=== PATIENT | male | born 1955 | race American Indian/Alaskan Native ===

== ENCOUNTER 2018-05-14 15:14 | Outpatient (CLI) | payer OTHER ==
--- NOTE | 2018-05-14 19:20 | XRay Report ---
FINAL REPORT PROCEDURE: Lumbar spine. TECHNIQUE: Four views. HISTORY: Low back pain. COMPARISON: No prior studies are available for comparison. FINDINGS: The lumbar vertebrae have normal height. There are no fractures. There is moderately severe disc space narrowing at L4-5 and L5-S1. There is grade 1 spondylolisthesis at L5-S1. The sacrum and sacroiliac joints appear normal. IMPRESSION: Degenerative disc disease at L4-5 and L5-S1. Grade 1 spondylolisthesis at L5-S1.
== END 2018-05-14 15:15 | disposition home or self-care (01) ==
LOC: XRAY 15:14
PROVIDERS: ATTEND Orthopaedic Surgery
DX: M51.37 Other intervertebral disc degeneration, lumbosacral region (principal); M43.17 Spondylolisthesis, lumbosacral region; I21.4 Non-ST elevation (NSTEMI) myocardial infarction; E03.9 Hypothyroidism, unspecified; I11.0 Hypertensive heart disease with heart failure; I50.9 Heart failure, unspecified
CPT/HCPCS: 72110

== ENCOUNTER 2018-07-07 16:45 | Outpatient (CLI) | payer OTHER ==
--- NOTE | 2018-07-07 20:00 | Magnetic Resonance Report ---
FINAL REPORT PROCEDURE: MR LUMBAR SPINE WO CON TECHNIQUE: Magnetic resonance imaging of the lumbar spine was performed using standard pulse sequences without contrast material. CPT 17831 HISTORY: LOW BACK PAIN COMPARISON: 05/14/2018 FINDINGS: The conus terminates at the level of L1 and is unremarkable in appearance. L1-2: There is minimal broad-based posterior disc herniation, with no significant spinal stenosis or neural foraminal. Bilateral facet arthritis. L2-3: Minimal broad-based posterior disc bulge, without significant spinal stenosis or neural foraminal narrowing. Bilateral facet arthritis. L3-4: Broad-based posterior disc herniation and bilateral facet arthritis. Thecal sac is not significantly narrowed. There is moderate bilateral neural foraminal narrowing. L4-5: There is broad-based posterior disc herniation and bilateral facet arthritis. There is high signal at the posterior aspect of the disc space, suggesting posterior annular fissure. There is moderate to severe bilateral neural foraminal narrowing. L5-S1: There is 5 millimeters anterolisthesis of L5 on S1, with possible bilateral L5 pars interarticularis defects. There is uncovering of the posterior disc at L5-S1. There is severe bilateral neural foraminal narrowing. No significant spinal stenosis. Other: Bilateral large renal cysts, which are not fully imaged. IMPRESSION: Significant degenerative disc changes, from L3-4 through L5-S1.
== END 2018-07-07 16:46 | disposition home or self-care (01) ==
LOC: MRI 16:45
PROVIDERS: ATTEND Orthopaedic Surgery
DX: M47.897 Other spondylosis, lumbosacral region (principal); M51.26 Other intervertebral disc displacement, lumbar region; I11.0 Hypertensive heart disease with heart failure; I50.9 Heart failure, unspecified; E03.9 Hypothyroidism, unspecified; M10.9 Gout, unspecified
CPT/HCPCS: 72148

== ENCOUNTER 2018-07-29 18:12 | Emergency (ER) | payer SELFPAY ==
[2018-07-29 18:39] VITALS: BP 172/99
== END 2018-07-29 18:54 | disposition left against medical advice (07) ==
LOC: ED 18:12
DX: M54.5 Low back pain (principal); Z53.21 Procedure and treatment not carried out due to patient leaving prior to being seen by health care provider

== ENCOUNTER 2018-08-11 19:55 | Emergency (ER) | payer OTHER ==
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
[2018-08-11 20:49] VITALS: BP 164/98
== END 2018-08-11 20:35 | disposition home or self-care (01) ==
LOC: ED 19:55
DX: G20 Parkinson's disease (principal); I10 Essential (primary) hypertension; E89.0 Postprocedural hypothyroidism; Z86.711 Personal history of pulmonary embolism; Z86.718 Personal history of other venous thrombosis and embolism; Z79.82 Long term (current) use of aspirin; V89.2XXA Person injured in unspecified motor-vehicle accident, traffic, initial encounter; Y93.89 Activity, other specified; Y92.488 Other paved roadways as the place of occurrence of the external cause; Y99.8 Other external cause status
CPT/HCPCS: 99283

== ENCOUNTER 2018-11-11 11:59 | Inpatient (IN) | payer BC ==
--- NOTE | 2018-11-11 12:52 | Emergency Department Report ---
HPI - General Chief Complaint: Neuro Symptoms/Deficit Time Seen by Provider: 11/11/18 12:33 - HPI HPI: Room 2 The patient is a 63-year-old male presenting with chief complaint of weakness. Family states the patient has been weak and sluggish for the past 1-2 weeks. States the patient has been very forgetful. The patient states she's felt off balance for approximately 3-6 months. There has been no loss of consciousness, paresthesia or dysarthria or dysphagia. States the patient has had urinary frequency for the past 2-3 weeks. Today the patient went to a urologist office for the first time in consultation where he was found to be lethargic and subsequently was sent to the ED for eval Location: [See above] Duration: [See above] Quality: Weakness Severity: Moderate Modifying factors: [see above] Context: [see above] Mode of transportation: [not driving] ED Past Medical Hx - Past Medical History Previous Medical History?: Yes Hx Hypertension: Yes Hx Deep Vein Thrombosis: Yes (left leg) Hx Pulmonary Embolism: Yes (2016- TOOK SELF OFF XARELTO 1 YR AGO) Additional medical history: bilateral PE. hypothyroid. parkinson's 2018 - Surgical History Past Surgical History?: Yes Additional Surgical History: THYROIDECTOMY. eyes - Family History Family history: no significant - Social History Smoking Status: Never Smoker Substance Use Type: None (denies illicit drug use), Alcohol (occasional) - Medications Home Medications: Home Medications Medication Instructions Recorded Confirmed Last Taken Type Levothyroxine [Synthroid] 100 mcg PO QAM 08/07/16 07/31/18 Unknown History Aspirin [Aspir-Low] 81 mg PO DAILY 07/22/18 07/22/18 Unknown History Oxybutynin [Ditropan] 5 mg PO DAILY 07/22/18 07/22/18 Unknown History hydrALAZINE [Apresoline TAB] 100 mg PO TID 07/22/18 07/22/18 Unknown History HYDROcodone/APAP 5-325 [[place] 1 each PO Q4HR PRN #20 tablet 07/31/18 Unknown Rx 5-325 mg TAB] ED Review of Systems ROS: Stated complaint: NEURO DEFICITS Other details as noted in HPI Constitutional: malaise Eyes: denies: eye pain ENT: denies: throat pain Respiratory: no symptoms reported Cardiovascular: denies: chest pain Endocrine: no symptoms reported Gastrointestinal: denies: abdominal pain Genitourinary: denies: dysuria Musculoskeletal: back pain Neurological: denies: headache, paresthesias Physical Exam - Physical Exam Vital Signs: Vital Signs 11/11/18 12:04 Temperature 97.9 F Pulse Rate 69 Respiratory 18 Rate Blood Pressure 139/93 O2 Sat by Pulse 99 Oximetry Physical Exam: GENERAL: The patient is well-developed well-nourished male lying on stretcher not appearing to be in acute distress. [] HEENT: Normocephalic. Atraumatic. Extraocular motions are intact. Patient has moist mucous membranes. NECK: Supple. Trachea midline CHEST/LUNGS: Clear to auscultation. There is no respiratory distress noted. HEART/CARDIOVASCULAR: Regular. There is no tachycardia. There is no gallop rub or murmur. ABDOMEN: Abdomen is soft, nontender. Patient has normal bowel sounds. There is no abdominal distention. SKIN: There is no rash. There is no edema. There is no diaphoresis. NEURO: The patient is awake, alert, and oriented. The patient is cooperative. The patient has no focal neurologic deficits. The patient has normal speech. Cranial nerves II through XII grossly intact, no drift. Moves all extremities well. Normal sensation throughout MUSCULOSKELETAL: There is no evidence of acute injury. NIHSS= 0 LOC a. Alert= 0 Not alert but arousable to minor stimuli=1 Not alert requires repeated or strong stimuli to move= 2 Responds only reflex motor or unresponsive=3 b. asks month and age answers both correctly= 0 answers one correctly= 1 answers neither correctly= 2 Best Gaze normal= 0 abnormal in one or both but forced deviation or total paresis absent= 1 forced deviation or total gaze paresis= 2 Visual no visual loss= 0 partial hemianopia= 1 complete hemianopia= 2 bilateral hemianopia= 3 Facial Palsy normal= 0 minor paralysis= 1 partial paralysis= 2 complete paralysis= 3 Motor Arm no drift= 0 drift before 10 secs but doesnt hit bed= 1 some effort against gravity= 2 no effort against gravity= 3 no movement= 4 Motor leg no drift= 0 drift before 5 secs but doesnt hit bed= 1 drifts to bed before 5 secs= 2 no effort against gravity= 3 no movement= 4 Limb ataxia absent=0 present in one limb= 1 present in two limbs= 2 Sensory normal= 0 mild sensory loss= 1 severe (unaware of being touched)= 2 Best language mild/some loss of fluency= 1 severe= 2 mute= 3 Dysarthria normal= 0 slurs some words= 1 severe/unintelligible= 2 Extinction and Inattention no abnormality= 0 visual, tactile, auditory or personal inattention= 1 profound (doesnt recognize own hand or orients to only one side= 2 ED Course Vital Signs 11/11/18 12:04 Temperature 97.9 F Pulse Rate 69 Respiratory 18 Rate Blood Pressure 139/93 O2 Sat by Pulse 99 Oximetry ED Medical Decision Making - Lab Data Result diagrams: 11/11/18 13:13 11/11/18 13:13 Laboratory Tests 11/11/18 11/11/18 11/11/18 13:01 13:01 13:01 WBC RBC Hgb Hct MCV MCH MCHC RDW Plt Count Lymph % (Auto) Spencer % (Auto) Eos % (Auto) Baso % (Auto) Lymph # Spencer # Eos # Baso # Seg Neutrophils % Seg Neutrophils # PT 14.0 INR 1.04 APTT 26.6 VBG pH 7.358 Sodium Potassium Chloride Carbon Dioxide Anion Gap BUN Creatinine Estimated GFR BUN/Creatinine Ratio Glucose Calcium Total Bilirubin AST ALT Alkaline Phosphatase Ammonia 43.0 Total Creatine Kinase CK-MB (CK-2) CK-MB (CK-2) Rel Index Troponin T NT-Pro-B Natriuret Pep Total Protein Albumin Albumin/Globulin Ratio TSH Free T4 11/11/18 11/11/18 11/11/18 13:13 13:13 13:13 WBC 5.7 RBC 4.05 Hgb 13.4 Hct 40.7 MCV 100 H MCH 33 H MCHC 33 RDW 13.8 Plt Count 131 L Lymph % (Auto) 21.9 Spencer % (Auto) 11.2 H Eos % (Auto) 0.3 Baso % (Auto) 0.4 Lymph # 1.3 Spencer # 0.6 Eos # 0.0 Baso # 0.0 Seg Neutrophils % 66.2 Seg Neutrophils # 3.8 PT INR APTT VBG pH Sodium 141 Potassium 4.3 Chloride 105.6 Carbon Dioxide 23 Anion Gap 17 BUN 18 Creatinine 0.9 Estimated GFR > 60 BUN/Creatinine Ratio 20 Glucose 74 L Calcium 9.2 Total Bilirubin 0.40 AST 31 ALT 18 Alkaline Phosphatase 55 Ammonia Total Creatine Kinase 194 H CK-MB (CK-2) 3.4 CK-MB (CK-2) Rel Index 1.7 Troponin T < 0.010 NT-Pro-B Natriuret Pep 153.9 Total Protein 6.8 Albumin 3.9 Albumin/Globulin Ratio 1.3 TSH 0.581 Free T4 1.23 - EKG Data -: EKG Interpreted by Sc EKG shows normal: sinus rhythm Rate: bradycardia (56 bpm) - EKG Data When compared to previous EKG there are: previous EKG unavailable Interpretation: other (no ischemic changes seen) - Radiology Data Radiology results: report reviewed (CT head), image reviewed (CT head) [facility] [address] [place] [address] Cat Scan Report Signed Patient: FERNANDO GRAY MR#: [id number] : 1955 Acct:[id number] Age/Sex: 63 / M ADM Date: 11/11/18 Loc: ED Attending Dr: Ordering Physician: RUBY LEI MD Date of Service: 11/11/18 Procedure(s): CT head/brain wo con Accession Number(s): [id number] cc: RUBY LEI MD CT HEAD WITHOUT CONTRAST: HISTORY: Weakness. TECHNIQUE: Sequential CT images without contrast. FINDINGS: Compared to 08/20/16. Mild diffuse volume loss is again noted. The subdural spaces near the vertex of the skull are slightly prominent bilaterally. This is unchanged. It is unclear if this is secondary to volume loss or chronic subdural collections. The brain parenchyma demonstrates normal density. There is no evidence for hemorrhage, mass or large area of acute ischemia. No chronic infarct is identified. Ventricular size is stable and wit hin normal limits. The calvarium, sinuses and mastoid air cells are within normal limits. IMPRESSION: No acute intracranial process. No change since 08/20/16. Mild diffuse volume loss. Question small bilateral chronic subdural collections as described above. Transcribed By: TTR Dictated By: JEANNETTE WHITLOCK JR, MD Electronically Authenticated By: JEANNETTE WHITLOCK JR, MD Signed Date/Time: 11/11/18 1320 DD/ 1318 TD/TT: 11/11/18 1320 - Differential Diagnosis symptomatic anemia, diabetes, Parkinson's disease, hypothyroidism Critical care attestation.: If time is entered above; I have spent that time in minutes in the direct care of this critically ill patient, excluding procedure time. ED Disposition Clinical Impression: Weakness Disposition: OP ADMIT IP TO THIS HOSP Is pt being admited?: Yes Does the pt Need Aspirin: No Condition: Fair Time of Disposition: 14:41 (Hospitalist notified (Dr Buenrostro))
--- NOTE | 2018-11-11 13:23 | Cat Scan Report ---
CT HEAD WITHOUT CONTRAST: HISTORY: Weakness. TECHNIQUE: Sequential CT images without contrast. FINDINGS: Compared to 08/20/16. Mild diffuse volume loss is again noted. The subdural spaces near the vertex of the skull are slightly prominent bilaterally. This is unchanged. It is unclear if this is secondary to volume loss or chronic subdural collections. The brain parenchyma demonstrates normal density. There is no evidence for hemorrhage, mass or large area of acute ischemia. No chronic infarct is identified. Ventricular size is stable and within normal limits. The calvarium, sinuses and mastoid air cells are within normal limits. IMPRESSION: No acute intracranial process. No change since 08/20/16. Mild diffuse volume loss. Question small bilateral chronic subdural collections as described above.
[2018-11-11 13:43] LABS: INR 1.04 (0.87-1.13)
[2018-11-11 13:44] LABS: Partial Thromboplastin Time 26.6 Sec. (24.2-36.6)
[2018-11-11 13:47] LABS: Basophils % (Auto) 0.4 % (0.0-1.8); Eosinophils % (Auto) 0.3 % (0.0-4.3); Hematocrit 40.7 % (35.5-45.6); Hemoglobin 13.4 gm/dl (11.8-15.2); Lymphocytes # (Auto) 1.3 K/mm3 (1.2-5.4); Lymphocytes % (Auto) 21.9 % (13.4-35.0); Mean Corpuscular HGB Conc 33 % (32-34); Mean Corpuscular Volume 100 fl (84-94); Monocytes # (Auto) 0.6 K/mm3 (0.0-0.8); Monocytes % (Auto) 11.2 % (0.0-7.3); Platelet Count 131 K/mm3 (140-440); Red Blood Count 4.05 M/mm3 (3.65-5.03); Red Cell Distribution Width 13.8 % (13.2-15.2)
[2018-11-11 14:10] LABS: Creatine Kinase MB 3.4 ng/mL (0.0-4.0)
[2018-11-11 14:12] LABS: Alanine Aminotransferase 18 units/L (7-56); Albumin 3.9 g/dL (3.9-5); BUN/Creatinine Ratio 20; Blood Urea Nitrogen 18 mg/dL (9-20); Calcium 9.2 mg/dL (8.4-10.2); Hemolysis Index 58
[2018-11-11 14:16] LABS: Free T4 (Free Thyroxine) 1.23 ng/dL (0.76-1.46)
[2018-11-11] MEDS ORDERED: ZOFRAN IV PRN (14:39)
[2018-11-11] MEDS ORDERED: TYLENOL PO PRN (14:39)
[2018-11-11] MEDS ORDERED: PROVENTIL IH PRN (14:39)
[2018-11-11] MEDS ORDERED: SODIUM CHLORIDE FLUSH SYRINGE 10 ML IV PRN (14:39)
--- NOTE | 2018-11-11 14:42 | History and Physical Report ---
History of Present Illness Chief complaint: He's not acting right History of present illness: 63 YO Male with HTN, DVT/PE not currently on therapeutic Anticoagualtion, Hypothyroid, Parkinsons disease presents to ED for evaluation. Pt is confused and unable to provide detailed history. Pt history is provided by his who is at bedside during exam and interview. As per , the patient has experienced increased weakness and confusion over the past 2 weeks with worsening symptoms over the same time frame. Pt is unable to independently conduct activities of daily living. No reports of fever, chills, CP, NVD, Trau ma, skin rash, productive cough, unintentional weight loss, night sweats, or recent ill contacts. Pt seen and evaluated in ED and found to have Encephalopathy and Debility. Pt admitted to medical floor. - Past History Past Medical History: DVT, hypertension, hypothyroidism, pulmonary embolism, other (Parkinsons) Past Surgical History: thyroidectomy, Other (Eye surgery) Social history: , lives with family. denies: smoking, alcohol abuse, prescription drug abuse Family history: hypertension Medications and Allergies Allergies Allergy/AdvReac Type Severity Reaction Status Date / Time No Known Allergies Allergy Verified 11/11/18 12:04 Home Medications Medication Instructions Recorded Confirmed Last Taken Type Levothyroxine [Synthroid] 100 mcg PO QAM 08/07/16 07/31/18 Unknown History Aspirin [Aspir-Low] 81 mg PO DAILY 07/22/18 07/22/18 Unknown History Oxybutynin [Ditropan] 5 mg PO DAILY 07/22/18 07/22/18 Unknown History hydrALAZINE [Apresoline TAB] 100 mg PO TID 07/22/18 07/22/18 Unknown History HYDROcodone/APAP 5-325 [[place] 1 each PO Q4HR PRN #20 tablet 07/31/18 Unknown Rx 5-325 mg TAB] Active Meds: Active Medications Acetaminophen (Tylenol) 650 mg PO Q4H PRN PRN Reason: Pain MILD(1-3)/Fever >100.5/[place] Albuterol (Proventil) 2.5 mg IH Q4HRT PRN PRN Reason: Shortness Of Breath Ondansetron HCl (Zofran) 4 mg IV Q8H PRN PRN Reason: Nausea And Vomiting Sodium Chloride (Sodium Chloride Flush Syringe 10 Ml) 10 ml IV BID ELA Sodium Chloride (Sodium Chloride Flush Syringe 10 Ml) 10 ml IV PRN PRN PRN Reason: LINE FLUSH Review of Systems ROS unobtainable: due to mental status Exam - Constitutional Vitals: Temp Pulse Resp BP Pulse Ox 97.9 F 61 19 156/93 100 11/11/18 12:04 11/11/18 13:33 11/11/18 13:33 11/11/18 13:33 11/11/18 13:33 General appearance: Present: mild distress - EENT Eyes: Present: PERRL ENT: hearing intact, clear oral mucosa - Neck Neck: Present: supple, normal ROM - Respiratory Respiratory effort: normal Respiratory: bilateral: CTA - Cardiovascular Heart Sounds: Present: S1 & S2. Absent: rub, click - Extremities Extremities: pulses symmetrical, No edema Peripheral Pulses: within normal limits - Abdominal General gastrointestinal: Present: soft, non-tender, non-distended, normal bowel sounds Male genitourinary: Present: normal - Integumentary Integumentary: Present: clear, warm, dry - Musculoskeletal Musculoskeletal: generalized weakness - Psychiatric Psychiatric: no appropriate mood/affect, no intact judgment & insight, no memory intact - Neurologic Neurologic: CNII-XII intact, moves all extremities, no gait normal Results - Labs CBC & Chem 7: 11/11/18 13:13 11/11/18 13:13 Labs: Abnormal lab results 11/11/18 11/11/18 Range/Units 13:13 13:13 MCV 100 H (84-94) fl MCH 33 H (28-32) pg Plt Count 131 L (140-440) K/mm3 [place] % (Auto) 11.2 H (0.0-7.3) % Glucose 74 L (75-100) mg/dL Total Creatine Kinase 194 H (55-170) units/L Assessment and Plan - Patient Problems (1) Encephalopathy Current Visit: Yes Status: Acute Plan to address problem: CT Head, neuro check, thyroid panel, B12 level, EEG, aspiration precautions, fall precautions, (2) Hypothyroid Current Visit: Yes Status: Acute Qualifiers: Hypothyroidism type: acquired Qualified Code(s): E03.9 - Hypothyroidism, unspecified Plan to address problem: continue current therapy, thyroid panel (3) Debility Current Visit: Yes Status: Acute Plan to address problem: PT consulted, supportive care (4) DVT prophylaxis Current Visit: Yes Status: Acute Plan to address problem: SCD to BLE while in bed.
[2018-11-11] MEDS: SODIUM CHLORIDE FLUSH SYRINGE 10 ML IV SCH (23:47)
[2018-11-12] MEDS: SODIUM CHLORIDE FLUSH SYRINGE 10 ML IV SCH ×2 (11:31→22:20)
--- NOTE | 2018-11-12 14:33 | Progress Note ---
Assessment and Plan Assessment and plan: 63-year-old man who presents with confusion. His relates that he has increased weakness and confusion for 2 weeks patient was having hallucinations on sinemet, and his neurologist tapered him from 3 tabs a day to 1/4 a tab daily and he has been progressively weak, worsening tremors, unable to do his ADLs Past medical history hypertension, DVT/PE, hypothyroidism, Parkinson's disease Acute toxic metabolic encephalopathy Follow-up labs, workup in progress obtain MR brain to r/o cva likely due reduction of sinemet dose, neuro consult, will increase sinemet dose again -neurology consult -TSH wnl, cont synthroid HTN hold bP meds, monitor BP curve Acute debility Physical therapy consult DVT prophylaxis; chemical History Interval history: Review of systems Constitutional: No fevers, no malaise, no joint pains CVS: No chest pain, no orthopnea, no dyspnea on exertion, no pedal edema GI: No abdominal pain, no diarrhea, no vomiting, no constipation Respiratory: No shortness of breath, no wheezing, no coughingReview of systems Hospitalist Physical - Physical exam Narrative exam: General.: Appears well, no distress, nontoxic HEENT: Moist mucous membranes, extraocular muscles intact, no lymphadenopathy Neck: supple Cardiac: S1-S2 heard Lungs: clear to auscultation bilaterally Abdomen: soft , nontender, nondistended, bowel sounds positive Extremities: no edema clubbing or cyanosis, resting tremor Skin: no rash or lesions Neurologic: no gross focal deficits Psych: calm, and cooperative - Constitutional Vitals: Temp Pulse Resp BP Pulse Ox 97.9 F 73 18 140/88 100 11/12/18 12:50 11/12/18 12:50 11/12/18 12:50 11/12/18 12:50 11/12/18 12:50 General appearance: Present: mild distress Results - Labs CBC & Chem 7: 11/11/18 13:13 11/11/18 13:13 Labs: Laboratory Last Values WBC 5.7 K/mm3 (4.5-11.0) 11/11/18 13:13 RBC 4.05 M/mm3 (3.65-5.03) 11/11/18 13:13 Hgb 13.4 gm/dl (11.8-15.2) 11/11/18 13:13 Hct 40.7 % (35.5-45.6) 11/11/18 13:13 MCV 100 fl (84-94) H 11/11/18 13:13 MCH 33 pg (28-32) H 11/11/18 13:13 MCHC 33 % (32-34) 11/11/18 13:13 RDW 13.8 % (13.2-15.2) 11/11/18 13:13 Plt Count 131 K/mm3 (140-440) L 11/11/18 13:13 Lymph % (Auto) 21.9 % (13.4-35.0) 11/11/18 13:13 [place] % (Auto) 11.2 % (0.0-7.3) H 11/11/18 13:13 Eos % (Auto) 0.3 % (0.0-4.3) 11/11/18 13:13 Baso % (Auto) 0.4 % (0.0-1.8) 11/11/18 13:13 Lymph # 1.3 K/mm3 (1.2-5.4) 11/11/18 13:13 [place] # 0.6 K/mm3 (0.0-0.8) 11/11/18 13:13 Eos # 0.0 K/mm3 (0.0-0.4) 11/11/18 13:13 Baso # 0.0 K/mm3 (0.0-0.1) 11/11/18 13:13 Seg Neutrophils % 66.2 % (40.0-70.0) 11/11/18 13:13 Seg Neutrophils # 3.8 K/mm3 (1.8-7.7) 11/11/18 13:13 PT 14.0 Sec. (12.2-14.9) 11/11/18 13:01 INR 1.04 (0.87-1.13) 11/11/18 13:01 APTT 26.6 Sec. (24.2-36.6) 11/11/18 13:01 D-Dimer 237.81 ng/mlDDU (0-234) H 11/11/18 13:13 VBG pH 7.358 (7.320-7.420) 11/11/18 13:01 Sodium 141 mmol/L (137-145) 11/11/18 13:13 Potassium 4.3 mmol/L (3.6-5.0) 11/11/18 13:13 Chloride 105.6 mmol/L (98-107) 11/11/18 13:13 Carbon Dioxide 23 mmol/L (22-30) 11/11/18 13:13 Anion Gap 17 mmol/L 11/11/18 13:13 BUN 18 mg/dL (9-20) 11/11/18 13:13 Creatinine 0.9 mg/dL (0.8-1.5) 11/11/18 13:13 Estimated GFR > 60 ml/min 11/11/18 13:13 BUN/Creatinine Ratio 20 % 11/11/18 13:13 Glucose 74 mg/dL (75-100) L 11/11/18 13:13 Calcium 9.2 mg/dL (8.4-10.2) 11/11/18 13:13 Total Bilirubin 0.40 mg/dL (0.1-1.2) 11/11/18 13:13 AST 31 units/L (5-40) 11/11/18 13:13 ALT 18 units/L (7-56) 11/11/18 13:13 Alkaline Phosphatase 55 units/L (35-129) 11/11/18 13:13 Ammonia 43.0 umol/L (25-60) 11/11/18 13:01 Total Creatine Kinase 194 units/L (55-170) H 11/11/18 13:13 CK-MB (CK-2) 3.4 ng/mL (0.0-4.0) 11/11/18 13:13 CK-MB (CK-2) Rel Index 1.7 (0-4) 11/11/18 13:13 Troponin T < 0.010 ng/mL (0.00-0.029) 11/11/18 13:13 NT-Pro-B Natriuret Pep 153.9 pg/mL (0-900) 11/11/18 13:13 Total Protein 6.8 g/dL (6.3-8.2) 11/11/18 13:13 Albumin 3.9 g/dL (3.9-5) 11/11/18 13:13 Albumin/Globulin Ratio 1.3 % 11/11/18 13:13 Vitamin B12 1080 pg/mL (211-911) H 11/11/18 13:13 TSH 0.581 mlU/mL (0.270-4.200) 11/11/18 13:13 Free T4 1.23 ng/dL (0.76-1.46) 11/11/18 13:13 HIV 1&2 Antibody Rapid Non react (Non React) 11/11/18 13:13 HIV P24 Antigen Non react (Non React) 11/11/18 13:13
[2018-11-12] MEDS ORDERED: ATIVAN IV NR (14:45)
--- NOTE | 2018-11-12 16:56 | XRay Report ---
FINAL REPORT PROCEDURE: Chest. TECHNIQUE: AP and lateral views. HISTORY: Cough. COMPARISON: No prior studies are available for comparison. FINDINGS: The heart size is normal. There is calcification in the thoracic aorta. The lungs are clear and well expanded. There are no pleural effusions. The soft tissues and regional skeleton are unremarkable. IMPRESSION: No evidence of acute disease.
--- NOTE | 2018-11-12 18:23 | Magnetic Resonance Report ---
FINAL REPORT PROCEDURE: MRI brain without contrast. TECHNIQUE: Magnetic resonance imaging of the brain was performed without contrast material. HISTORY: Stroke. COMPARISON: No prior studies are available for comparison. FINDINGS: The ventricles are normal in size. There is mild cerebral atrophy. There are a few scattered focal ar eas of bright signal intensity on the T2 and FLAIR weighted images. These are predominantly located i n the subcortical and deep white matter of both cerebral hemispheres. These are not unusual for age a nd probably represent chronic microvascular ischemic change. There are no mass lesions. There is no i ntracranial hemorrhage. There are no signs of restricted diffusion. The mastoid air cells and paranas al sinuses are grossly clear. IMPRESSION: Normal study of the brain for age.
--- NOTE | 2018-11-12 18:30 | Magnetic Resonance Report ---
FINAL REPORT PROCEDURE: Magnetic resonance angiogram of the brain without contrast. TECHNIQUE: Axial 3-D [id number] MR angiography of the [place] of [place] and brain was performed. The source images were reconstructed in various views using maximum intensity projection. HISTORY: Stroke. COMPARISON: No prior studies are available for comparison. FINDINGS: Both distal internal carotid arteries are widely patent. Both anterior cerebral arteries are patent. Both anterior cerebral arteries fill through the right A1 segment. The left A1 segment is congenitall y absent. Both middle cerebral arteries are patent. The left posterior communicating artery is patent . The right posterior communicating artery is not visible. Both distal vertebral arteries are patent. Both posterior inferior cerebellar arteries are patent. The basilar artery is patent. Both anterior inferior cerebellar arteries are patent. Both superior cerebellar and both posterior cerebral arterie s are patent. There are no signs of aneurysm disease. There is no evidence of a vasculitis. 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 Both anterior cer ebral arteries fill from the right side. No significant vascular abnormality identified.
[2018-11-12] MEDS: LATANOPROST 0.005% OU SCH (22:41)
--- NOTE | 2018-11-13 01:33 | Consultation ---
NEUROLOGICAL CONSULTATION REASON FOR CONSULTATION: Evaluation of Parkinson's disease. CHIEF COMPLAINT: Weakness. HISTORY OF PRESENT ILLNESS: History is obtained partly from the patient, two daughters, but I spoke with the on the phone. The patient is a 63-year-old [place] male, who was diagnosed with Parkinson's disease about 2 years ago. He was then treated and evaluated. He has been followed by a neurologist here. He was taking only a small dose of Sinemet apparently has been 1/2 tablet of 20/100 three times a day and with this, he has been doing well. His main symptoms are such as slowness of movement and especially with walking. However, for the last 2 weeks, he has been becoming very weak and sluggish and he is off balanced. The felt that this started after the physician increased the Sinemet to 3 times a day. She observed that he is somewhat better now that he had not received this and the patient has received his Sinemet yet. He was also described to be somewhat lethargic and it was decided that he was sent to the Emergency Room for evaluation. The patient also had complained of low back pain and he was diagnosed with arthritis. He apparently had received what the daughter described as epidural block. I reviewed the history from the admitting physician and he mentioned that the patient was confused and could not give any history. The patient is getting to be slowly progressively unable to do his activities of daily living also. He was felt to have some encephalopathy by the Emergency Room physician. PAST MEDICAL HISTORY: The patient was diagnosed with Parkinson's disease, has deep vein thrombosis, hypertension, hypothyroidism, pulmonary embolism. PAST SURGICAL HISTORY: Thyroidectomy, eye surgery. SOCIAL HISTORY: He is . He lives with his family. He does not smoke, drink alcoholic beverages. No drugs. FAMILY HISTORY: Positive for Parkinson's. ALLERGIES: None known. MEDICATIONS: The list of medications was reviewed by me with the nurse and it appeared that there is a record of Sinemet at 25/100 t.i.d. He was not sure when this was started. His home medication from the records reveals levothyroxine 100 mcg. p.o. at morning, aspirin 81 mg daily, Ditropan 5 mg daily, hydralazine 100 mg t.i.d., [place] 1 every 4 hours p.r.n. PHYSICAL EXAMINATION: GENERAL: Revealed the patient is a well-developed, well-nourished male. He was in no acute distress. VITAL SIGNS: Blood pressure was 120/77, temperature 98.8, pulse rate 70, respiration 18 and regular, oximetry 97%. HEAD, EYES, EARS, NOSE, MOUTH AND THROAT: Examination is unremarkable. No intracranial or intraorbital bruits. NECK: Supple. No carotid bruit. HEART: Regular rate and rhythm. LUNGS: Sounds clear. ABDOMEN: Soft. EXTREMITIES: Unremarkable. NEUROLOGIC: Examination revealed the patient is awake, alert. His speech is somewhat slow and thick. He has a slight mass-like face. Cranial nerve examination is unremarkable. Motor examination, he is generally weak, but about 4-1/2/5. He has cogwheeling bilaterally in the upper extremities, difficult to obtain in the lower extremities. Coordination is difficult to obtain. Reflexes are hypoactive. No pathological reflexes. The patient was not ambulated because of his weakness, but the daughter reports that when he walks he usually shuffles and better with. IMAGING STUDIES: The patient has had a CT scan of the brain, which showed mild atrophy only. MRI of the brain is pending. ASSESSMENT AND NEUROLOGIC EVALUATION: This patient has a 2-year history of Parkinson's disease. He was just started on medication and therefore, it is difficult to assess his response. From the history, the described that he seems to be coming along fine with the medication, but to a small dose and when the dose was increased, she felt that this is what the cause of his hallucination, which is possible and also the weakness. I could not correlate this very well. There is also an overall report by the that he seems to be not moving as well as when he was the first time. This could be the natural course of the disease. Therefore, we are trying to assess how he is doing with the progression of the disease as well as the effect from the Sinemet. RECOMMENDATION: We will review the MRI. As far as the medication is concerned, the family is quite hesitant to put back on the newer medication of 25/100 three times a day. Therefore, I discussed with him that we might try some smaller dosage at 25/100 b.i.d. and closely observe. I discussed with them the difficulty of adjusting the medication sometimes. This patient also has a chronic low back pain, which is being treated by his primary care doctor. This patient should be also checked metabolically, check also for any possible infection. We will leave this to the attending hospitalist. Sixty minutes involving the history and physical examination, more than 50% in the evaluation of care and counseling. JOB# [id number] DAPHNIE/BAKARI
[2018-11-13 03:01] LABS: Bacteria,Urine 1+ /HPF (Negative); Bilirubin,Urine NEG (Negative); Blood,Urine NEG (Negative); Color,Urine Yellow (Yellow); Mucus,Urine FEW /HPF; Protein,Urine <15 mg/dL mg/dL (Negative); Urobilinogen,Urine < 2.0 mg/dL (<2.0)
[2018-11-13] MEDS: SYNTHROID PO SCH (06:12)
[2018-11-13] MEDS: NORVASC PO SCH (09:15)
[2018-11-13] MEDS: FLOMAX PO SCH (09:15)
[2018-11-13] MEDS: SODIUM CHLORIDE FLUSH SYRINGE 10 ML IV SCH ×2 (09:18→22:00)
[2018-11-13] MEDS ORDERED: SINEMET PO SCH (10:00)
[2018-11-13] MEDS ORDERED: NON-FORMULARY (Carbidopa/Levodopa [Carbidopa-Levo 25-100 Mg Odt] 1 EACH) PO SCH (10:00)
--- NOTE | 2018-11-13 11:42 | Progress Note ---
Assessment and Plan Assessment and plan: 63-year-old man who presents with confusion. His relates that he has increased weakness and confusion for 2 weeks patient was having hallucinations on sinemet, and his neurologist tapered him from 3 tabs a day to 1/4 a tab daily and he has been progressively weak, worsening tremors, unable to do his ADLs Past medical history hypertension, DVT/PE, hypothyroidism, Parkinson's disease Acute toxic metabolic encephalopathy workup with includes, TSH, b12, hiv and mr brain are all negative likely due reduction of sinemet dose, neuro consult, appreciated, increase sinemet to 2 tabs daily Hypothyroidism tsh wnl, cont synthroid HTN hold BP meds, monitor BP curve Acute debility Physical therapy consult 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 empiric abx, obtain urine cx DVT prophylaxis; chemical Dispo; home with family and home health upon dc Hospitalist Physical - Constitutional Vitals: Temp Pulse Resp BP Pulse Ox 98.9 F 55 L 16 139/75 97 11/13/18 05:14 11/13/18 05:14 11/13/18 05:14 11/13/18 09:15 11/13/18 05:14 General appearance: Present: mild distress Results - Labs CBC & Chem 7: 11/11/18 13:13 11/11/18 13:13 Labs: Laboratory Last Values WBC 5.7 K/mm3 (4.5-11.0) 11/11/18 13:13 RBC 4.05 M/mm3 (3.65-5.03) 11/11/18 13:13 Hgb 13.4 gm/dl (11.8-15.2) 11/11/18 13:13 Hct 40.7 % (35.5-45.6) 11/11/18 13:13 MCV 100 fl (84-94) H 11/11/18 13:13 MCH 33 pg (28-32) H 11/11/18 13:13 MCHC 33 % (32-34) 11/11/18 13:13 RDW 13.8 % (13.2-15.2) 11/11/18 13:13 Plt Count 131 K/mm3 (140-440) L 11/11/18 13:13 Lymph % (Auto) 21.9 % (13.4-35.0) 11/11/18 13:13 [place] % (Auto) 11.2 % (0.0-7.3) H 11/11/18 13:13 Eos % (Auto) 0.3 % (0.0-4.3) 11/11/18 13:13 Baso % (Auto) 0.4 % (0.0-1.8) 11/11/18 13:13 Lymph # 1.3 K/mm3 (1.2-5.4) 11/11/18 13:13 [place] # 0.6 K/mm3 (0.0-0.8) 11/11/18 13:13 Eos # 0.0 K/mm3 (0.0-0.4) 11/11/18 13:13 Baso # 0.0 K/mm3 (0.0-0.1) 11/11/18 13:13 Seg Neutrophils % 66.2 % (40.0-70.0) 11/11/18 13:13 Seg Neutrophils # 3.8 K/mm3 (1.8-7.7) 11/11/18 13:13 PT 14.0 Sec. (12.2-14.9) 11/11/18 13:01 INR 1.04 (0.87-1.13) 11/11/18 13:01 APTT 26.6 Sec. (24.2-36.6) 11/11/18 13:01 D-Dimer 237.81 ng/mlDDU (0-234) H 11/11/18 13:13 VBG pH 7.358 (7.320-7.420) 11/11/18 13:01 Sodium 141 mmol/L (137-145) 11/11/18 13:13 Potassium 4.3 mmol/L (3.6-5.0) 11/11/18 13:13 Chloride 105.6 mmol/L (98-107) 11/11/18 13:13 Carbon Dioxide 23 mmol/L (22-30) 11/11/18 13:13 Anion Gap 17 mmol/L 11/11/18 13:13 BUN 18 mg/dL (9-20) 11/11/18 13:13 Creatinine 0.9 mg/dL (0.8-1.5) 11/11/18 13:13 Estimated GFR > 60 ml/min 11/11/18 13:13 BUN/Creatinine Ratio 20 % 11/11/18 13:13 Glucose 74 mg/dL (75-100) L 11/11/18 13:13 Calcium 9.2 mg/dL (8.4-10.2) 11/11/18 13:13 Total Bilirubin 0.40 mg/dL (0.1-1.2) 11/11/18 13:13 AST 31 units/L (5-40) 11/11/18 13:13 ALT 18 units/L (7-56) 11/11/18 13:13 Alkaline Phosphatase 55 units/L (35-129) 11/11/18 13:13 Ammonia 43.0 umol/L (25-60) 11/11/18 13:01 Total Creatine Kinase 194 units/L (55-170) H 11/11/18 13:13 CK-MB (CK-2) 3.4 ng/mL (0.0-4.0) 11/11/18 13:13 CK-MB (CK-2) Rel Index 1.7 (0-4) 11/11/18 13:13 Troponin T < 0.010 ng/mL (0.00-0.029) 11/11/18 13:13 NT-Pro-B Natriuret Pep 153.9 pg/mL (0-900) 11/11/18 13:13 Total Protein 6.8 g/dL (6.3-8.2) 11/11/18 13:13 Albumin 3.9 g/dL (3.9-5) 11/11/18 13:13 Albumin/Globulin Ratio 1.3 % 11/11/18 13:13 Vitamin B12 1080 pg/mL (211-911) H 11/11/18 13:13 TSH 0.581 mlU/mL (0.270-4.200) 11/11/18 13:13 Free T4 1.23 ng/dL (0.76-1.46) 11/11/18 13:13 Urine Color Yellow (Yellow) 11/12/18 02:37 Urine Turbidity Clear (Clear) 11/12/18 02:37 Urine pH 7.0 (5.0-7.0) 11/12/18 02:37 Ur Specific [place] 1.014 (1.003-1.030) 11/12/18 02:37 Urine Protein <15 mg/dl mg/dL (Negative) 11/12/18 02:37 Urine Glucose (UA) Neg mg/dL (Negative) 11/12/18 02:37 Urine Ketones Neg mg/dL (Negative) 11/12/18 02:37 Urine Blood Neg (Negative) 11/12/18 02:37 Urine Nitrite Neg (Negative) 11/12/18 02:37 Urine Bilirubin Neg (Negative) 11/12/18 02:37 Urine Urobilinogen < 2.0 mg/dL (<2.0) 11/12/18 02:37 Ur Leukocyte Esterase Sm (Negative) 11/12/18 02:37 Urine WBC (Auto) 17.0 /HPF (0.0-6.0) H 11/12/18 02:37 Urine RBC (Auto) 2.0 /HPF (0.0-6.0) 11/12/18 02:37 U Epithel Cells (Auto) < 1.0 /HPF (0-13.0) 11/12/18 02:37 Urine Bacteria (Auto) 1+ /HPF (Negative) 11/12/18 02:37 Urine Mucus Few /HPF 11/12/18 02:37 HIV 1&2 Antibody Rapid Non react (Non React) 11/11/18 13:13 HIV P24 Antigen Non react (Non React) 11/11/18 13:13
--- NOTE | 2018-11-13 13:27 | XRay Report ---
Lumbar spine: Back pain. AP and lateral projections demonstrate diffuse spondylosis of the lumbar levels. There is marked narrowing of the interspaces between L4-5 and L5-S1 with eburnation of the articular surfaces. There is a grade 1 anterior L5 subluxation relative to S1. The vertebral alignment is otherwise unremarkable. Vertebral height is generally maintained at all levels. There is a minimal angulation of the upper 2 lumbar bodies to the right. Compared to prior examination of May 14, 2018 there are no changes noted. Of note is calcification of the distal abdominal aorta with a diameter of 2.1 cm. Impression: Multilevel stable degenerative bone and disc changes with grade one L5 subluxation.
[2018-11-13] MEDS: ROCEPHIN/NS 1 GM/50 ML 1 GM/50 ML BAG IV SCH (14:59)
--- NOTE | 2018-11-13 17:56 | Consultation ---
History of Present Illness - Reason for Consult Consult date: 11/13/18 - History of Present Illness 63-year-old man who presents with confusion. His relates that he has increased weakness and confusion for 2 weeks patient was having hallucinations on sinemet, and his neurologist tapered him from 3 tabs a day to 1/4 a tab daily and he has been progressively weak, worsening tremors, unable to do his ADLs Seen by Dr. Ren in office spine imaging: + DJD lumbar area MRI brain normal Past medical history hypertension, DVT/PE, hypothyroidism, Parkinson's disease female & male at bedside abd soft A/a urinary frequency/ nocturia (x 5-6) trial of flomax needs outpt urodynamics Past History Past Medical History: DVT, hypertension, hypothyroidism, pulmonary embolism, other (Parkinsons) Past Surgical History: thyroidectomy, Other (Eye surgery) Social history: , lives with family. denies: smoking, alcohol abuse, prescription drug abuse Family history: hypertension Medications and Allergies Allergies Allergy/AdvReac Type Severity Reaction Status Date / Time No Known Allergies Allergy Unverified 11/13/18 10:56 Home Medications Medication Instructions Recorded Confirmed Last Taken Type Levothyroxine [Synthroid] 100 mcg PO QAM 08/07/16 11/11/18 Unknown History Carbidopa/Levodopa [Carbidopa-Levo 1 each PO DAILY 11/11/18 11/11/18 Unknown History 25-100 mg Odt] Latanoprost [Xalatan] 2.5 ml OP DAILY 11/11/18 11/11/18 Unknown History hydrALAZINE 100 mg PO BID 11/12/18 11/12/18 11/11/18 08:00 History Active Meds: Active Medications Acetaminophen (Tylenol) 650 mg PO Q4H PRN PRN Reason: Pain MILD(1-3)/Fever >100.5/KINSEY Albuterol (Proventil) 2.5 mg IH Q4HRT PRN PRN Reason: Shortness Of Breath Amlodipine Besylate (Norvasc) 10 mg PO QDAY [facility], [facility]1983 Last Admin: 11/13/18 09:15 Dose: 10 mg Documented by: Carbidopa/Levodopa (Sinemet) 1 each PO BID [facility], [facility]1983 Enoxaparin Sodium (Lovenox) 40 mg SUB-Q QDAY@2200 [facility], [facility]1983 Ceftriaxone Sodium (Rocephin/Ns 1 Gm/50 Ml) 1 gm in 50 mls @ 100 mls/hr IV Q24HR [facility], [facility]1983; Protocol Last Admin: 11/13/18 14:59 Dose: 100 mls/hr Documented by: Latanoprost (Latanoprost 0.005%) 1 drops OU QPM [facility]1983 Last Admin: 11/12/18 22:41 Dose: Not Given Documented by: Levothyroxine Sodium (Synthroid) 100 mcg PO DAILY@0600 [facility] Last Admin: 11/13/18 06:12 Dose: 100 mcg Documented by: Lorazepam (Ativan) 2 mg IV [employer]URNS [employer]OR NR Stop: 11/13/18 23:59 Methylprednisolone (Medrol) 4 mg PO BID [facility]1983 Ondansetron HCl (Zofran) 4 mg IV Q8H PRN PRN Reason: Nausea And Vomiting Sodium Chloride (Sodium Chloride Flush Syringe 10 Ml) 10 ml IV BID [facility] Last Admin: 11/13/18 09:18 Dose: 10 ml Documented by: Sodium Chloride (Sodium Chloride Flush Syringe 10 Ml) 10 ml IV PRN PRN PRN Reason: LINE FLUSH Tamsulosin HCl (Flomax) 0.4 mg PO QDAY [facility] Last Admin: 11/13/18 09:15 Dose: 0.4 mg Documented by: Exam - Constitutional Vitals: Temp Pulse Resp BP Pulse Ox 97.8 F 77 16 102/62 98 11/13/18 17:02 11/13/18 17:02 11/13/18 17:02 11/13/18 17:02 11/13/18 17:02 Results - Labs CBC & Chem 7: 11/11/18 13:13 11/11/18 13:13 Labs: Abnormal lab results 11/12/18 Range/Units 02:37 Urine WBC (Auto) 17.0 H (0.0-6.0) /HPF
[2018-11-13] MEDS: LATANOPROST 0.005% OU SCH (18:00)
[2018-11-13] MEDS ORDERED: LOVENOX SUB-Q SCH (22:00)
[2018-11-13] MEDS: MEDROL PO SCH (22:00)
[2018-11-13] MEDS: SINEMET PO SCH (22:47)
--- NOTE | 2018-11-14 00:38 | Physician Progress Note ---
NEUROLOGY PROGRESS NOTE REASON FOR CONSULTATION: Parkinson's disease. SUBJECTIVE: The patient is doing much better today. He is awake, alert, talking. He said that he is feeling stronger. He is communicative, talking well. There has been no other event. OBJECTIVE: The patient has mask-like facies, but not bad. The speech is better than yesterday. He still has cogwheeling rigidity. Gait shuffling. MRI of the brain was negative. MRA also negative. ASSESSMENT: It is very possible that the symptoms of the patient could be related to the increase in the dosage of the Sinemet. However, I observed that the dose was only very, very small. I just put him on 25/100 b.i.d. I am wondering whether the small dose made the difference. In anyway, there is improvement. PLAN: We will continue the same medication. Once he is stable, he will need to be closely followed by his neurologist as an outpatient. I had a long discussion with the patient's sister yesterday with regards to the prognosis, the need for constant treatment that there is no cure. The patient will develop altered mental status changes as observed in patients with Parkinson's. The patient to have physical therapy. Again, same dose of medication and neuro observation. Continuing care by the [facility] neurologist. JOB# [id number] DAPHNIE/BAKARI
[2018-11-14 06:07] VITALS: BP 142/83
[2018-11-14] MEDS: SYNTHROID PO SCH (06:14)
[2018-11-14] MEDS ORDERED: FLOMAX PO SCH (10:00)
[2018-11-14] MEDS: ROCEPHIN/NS 1 GM/50 ML 1 GM/50 ML BAG IV SCH (10:06)
[2018-11-14] MEDS: NORVASC PO SCH (10:07)
[2018-11-14] MEDS: SINEMET PO SCH (10:07)
[2018-11-14] MEDS: FLOMAX PO SCH (10:08)
[2018-11-14] MEDS: SODIUM CHLORIDE FLUSH SYRINGE 10 ML IV SCH (10:09)
--- NOTE | 2018-11-14 11:27 | Discharge Summary ---
Providers - Providers Date of Admission: 11/11/18 14:39 Attending physician: CONNOR ZHANG MD 11/12/18 14:29 Occupational Therapy Evaluate and Treat [CONS] Routine Comment: Reason For Exam: Neuro deficits Physical Therapy Evaluation and Treat [CONS] Routine Comment: Reason For Exam: Neuro deficits Physical Therapy Evaluation and Treat [CONS] Routine Comment: Reason For Exam: ataxia 11/12/18 14:33 Consult to Physician [CONS] Routine Comment: Consulting Provider: REGULO TORRES Physician Instructions: Reason For Exam: ams 11/13/18 17:12 Consult to Physician [CONS] Routine Comment: Consulting Provider: BERTA BRANDON Physician Instructions: Reason For Exam: trouble urinating 11/13/18 17:23 Consult to Physician [CONS] Routine Comment: Consulting Provider: BERTA BRANDON Physician Instructions: Reason For Exam: difficulty urinating Primary care physician: [employer] Hospitalization Condition: Fair Hospital course: 63-year-old man who presents with confusion. His relates that he has increased weakness and confusion for 2 weeks patient was having hallucinations on sinemet, and his neurologist tapered him from 3 tabs a day to 1/4 a tab daily and he has been progressively weak, worsening tremors, unable to do his ADLs Past medical history hypertension, DVT/PE, hypothyroidism, Parkinson's disease -The patient's likely suffered worsening of his Parkinson's disease symptoms due to weaning off Sinemet. He was seen by neurology, he received MRI of his brain which was negative for any acute findings, TSH was wnl. He was put back on Sinemet at a reduced dose -UTI was ruled out by negative urine culture. He received x-ray of his spine which is consistent with DJD, and advised to take pain meds as needed and advised to continue physical therapy, home physical therapy was organized for him -BP meds were optimized, he was seen by urology for prostatism, he was treated with Flomax and is to follow-up with them in clinic Diagnosis Acute toxic metabolic encephalopathy Hypothyroidism HTN Acute debility Prostatism DJD of l spine Disposition: [id number] HOME UNDER HOME HL Time spent for discharge: 33 mins Core Measure Documentation - Palliative Care Palliative Care/ Comfort Measures: Not Applicable - Core Measures Any of the following diagnoses?: none Exam - Constitutional Vitals: Temp Pulse Resp BP Pulse Ox 98.6 F 61 20 142/83 99 11/14/18 05:44 11/14/18 05:44 11/14/18 05:44 11/14/18 05:44 11/14/18 05:44 General appearance: Present: no acute distress, well-nourished - EENT Eyes: Present: PERRL ENT: hearing intact, clear oral mucosa - Neck Neck: Present: supple, normal ROM - Respiratory Respiratory effort: normal Respiratory: bilateral: CTA - Cardiovascular Heart Sounds: Present: S1 & S2. Absent: rub, click - Extremities Extremities: pulses symmetrical, No edema Peripheral Pulses: within normal limits - Abdominal General gastrointestinal: Present: soft, non-tender, non-distended, normal bowel sounds Male genitourinary: Present: normal - Integumentary Integumentary: Present: clear, warm, dry - Musculoskeletal Musculoskeletal: gait normal, strength equal bilaterally - Psychiatric Psychiatric: appropriate mood/affect, intact judgment & insight - Neurologic Neurologic: CNII-XII intact, moves all extremities Plan Follow up with: PRIMARY CARE,MD [Primary Care Provider] - 3-5 Days Prescriptions: amLODIPine [Norvasc] 10 mg PO QDAY #30 tablet Carbidopa/Levodopa 25-100 [Sinemet 25/100] 1 each PO BID #60 tablet methylPREDNISolone [Medrol] 4 mg PO DAILY #1 tab.ds.pk Naproxen [EC-Naprosyn] 375 mg PO Q12H PRN #60 tablet.dr PRN Reason: back pain Tamsulosin [Flomax] 0.4 mg PO QDAY #30 capsule Other Discharge Orders: Home Health Care (Amb) Location: None Selected [facility] (Amb) Location: None Selected [facility] (Amb) Location: None Selected
[2018-11-14] MEDS: MEDROL PO SCH (11:49)
--- NOTE | 2018-11-16 14:01 | Vascular Lab Report ---
FINAL REPORT EXAM: VL CAROTID DUPLEX BILAT HISTORY: cva COMPARISON: None. TECHNIQUE: Duplex Doppler ultrasound of the carotid arteries was performed. FINDINGS: There is a small amount of atherosclerotic plaque in the right carotid bulb and proximal right spring intern al carotid artery with less than 50 percent stenosis. The right external carotid artery is patent. Th ere is antegrade flow in the right vertebral artery. The left common carotid and internal carotid arteries are patent without evidence of stenosis. The le ft external carotid artery is patent. There is antegrade flow in the left vertebral artery. Peak systolic velocities (cm/sec) are as follows: Right common carotid artery: 95.1 Right internal carotid artery: 71.5 Right external carotid artery: 86.8 Left common carotid artery: 91.5 Left internal carotid artery: 62 Left external carotid artery: 65.2 Peak systolic velocity ratio between the right internal carotid artery and the right common carotid a rtery: 0.75 Peak systolic velocity ratio between the left internal carotid artery and left common carotid artery: 0.68 IMPRESSION: Small amount of atherosclerotic plaque in the right carotid bulb and proximal right internal carotid artery with less than 50 percent stenosis. Patent left carotid arterial system.
== END 2018-11-14 15:00 | disposition home health service (06) | DRG 93 ==
LOC: ED 11:59 → 3A 14:39
PROVIDERS: ADMIT Internal Medicine; ATTEND Internal Medicine
DX: G92 Toxic encephalopathy (principal); E03.9 Hypothyroidism, unspecified; M47.816 Spondylosis without myelopathy or radiculopathy, lumbar region; I10 Essential (primary) hypertension; G20 Parkinson's disease; Z86.718 Personal history of other venous thrombosis and embolism; Z86.711 Personal history of pulmonary embolism; Z82.49 Family history of ischemic heart disease and other diseases of the circulatory system; Z79.82 Long term (current) use of aspirin; Z79.899 Other long term (current) drug therapy; Z82.0 Family history of epilepsy and other diseases of the nervous system
CPT/HCPCS: 36415; 70450; 70544; 70551; 71046; 72100; 80053; 81001; 82140; 82550; 82553; 82607; 82805; 83880; 84439; 84443; 84484; 85025; 85379; 85610; 85730; 87086; 87806; 93005; 93010; 93880; 95819; 99285; G0378; J0696; J1650; J7509